=== PATIENT | male | born 1945 | race Caucasian/White ===

== ENCOUNTER 2017-09-15 07:31 | Emergency (ER) | payer MEDICARE, BC ==
[~2017-09-15] VITALS: Ht 182.9 cm; Wt 81.0 kg
[~2017-09-15 07:31] MED LIST: CHLO0.129 SWISH-SPIT
[2017-09-15 07:37] VITALS: BP 133/67; PULSE 76; RESP 16; TEMP 97.6; O2SAT 97
[2017-09-15] MEDS ORDERED: ALEV220T14 PO (07:46)
--- NOTE | 2017-09-15 08:01 | PD ---
HPI Chief Complaint: Back/ Neck Pain or Injury Time Seen by Provider: 07:58 Travel History International Travel<30 days: No Contact w/Intl Traveler<30days: No Traveled to known affect area: No History of Present Illness HPI Patient presents with complaints of acute lower back pain. States he was playing tennis on and after the second match he had acute onset of lumbar back pain. Denies any trauma misstep or fall. He was diagnosed with prostate cancer 1 month ago. Denies any lower extremity weakness. Aggravated with movement. PFSH Past Medical History Cancer: Yes (prostate) Diminished Hearing: No Radiation Therapy: Yes (last done 09/13/2017) Influenza Vaccination: No ?: Not Past Surgical History Surgical History: No Previous Surgery Social History Alcohol Use: Yes (3 BEERS DAILY) Tobacco Use: No Allergies-Medications (Allergen,Severity, Reaction): Coded Allergies: No Known Allergies (Unverified Adverse Reaction, Unknown, 09/15/17) Reported Meds & Prescriptions Reported Meds & Active Scripts Active Reported Aleve Arthritis (Naproxen Sodium) 220 Mg Tab 220 Mg PO BID Review of Systems General / Constitutional: No: Fever Eyes: No: Visual changes HENT: No: Headaches Cardiovascular: No: Chest Pain or Discomfort Respiratory: No: Shortness of Breath Gastrointestinal: No: Abdominal Pain Genitourinary: No: Dysuria Musculoskeletal: No: Pain Skin: No Rash Neurologic: No: Weakness Psychiatric: No: Depression Endocrine: No: Polydipsia Hematologic/Lymphatic: No: Easy Bruising Physical Exam Narrative GENERAL: Well-nourished, well-developed patient. SKIN: Focused skin assessment warm/dry. HEAD: Normocephalic. EYES: No scleral icterus. No injection or drainage. NECK: Supple, trachea midline. No JVD or lymphadenopathy. CARDIOVASCULAR: Regular rate and rhythm without murmurs, gallops, or rubs. RESPIRATORY: Breath sounds equal bilaterally. No accessory muscle use. GASTROINTESTINAL: Abdomen soft, non-tender, nondistended. MUSCULOSKELETAL: No cyanosis, or edema. BACK: Nontender without obvious deformity. No CVA tenderness. Examination lumbar sacral spine really doesn't elicit any tenderness in midline or paraspinous regions Data Data Last Documented VS Vital Signs Date Time Temp Pulse Resp B/P (MAP) Pulse Ox O2 Delivery O2 Flow Rate FiO2 2/25/18 07:37 97.6 76 16 133/67 (89) 97 Room Air Orders Orders Spine, Lumbar - Ltd (Ap & Lat) (09/15/17 ) MDM Medical Decision Making Medical Screen Exam Complete: Yes Emergency Medical Condition: Yes Differential Diagnosis Lumbar sacral muscle discomfort pain, lumbar degenerative disc disease, lumbar fracture, metastases from prostate cancer Narrative Course Assessment and plan discussed with patient at bedside. Degenerative change with disc space narrowing at the L4-L5 level and marginal osteophytes throughout. Diagnosis Primary Impression: Lumbago Qualified Codes: M54.5 - Low back pain Patient Instructions: General Instructions Additional Instructions: Encourage nonsteroidal anti-inflammatories warm heat gentle stretching and strengthening and massage. Pain medication and muscle relaxer as needed. Follow-up with PCP. Return to the ER with any onset of new symptoms. Med/Other Pt SpecificInfo: Prescription(s) given Scripts Cyclobenzaprine (Flexeril) 10 Mg Tab 10 MG PO TID for Muscle Spasm, #15 TAB 0 Refills Prov: Nathen Santiago MD 09/15/17 Hydrocodone-Acetaminophen (Hydrocodone-Acetaminophen) 5-325 mg Tab 1 TAB PO Q4H Y for PAIN for 5 Days, #15 TAB 0 Refills Prov: Nathen Santiago MD 09/15/17 Disposition: 01 DISCHARGE HOME Condition: Good Nathen Santiago MD Sep 15, 2017 08:01
--- NOTE | 2017-09-15 08:50 | RADRPT ---
EXAM DATE/TIME: 09/15/2017 08:20 [facility] COMPARISON: No previous studies available for comparison. INDICATIONS : Lower back pain. Twisting motion while playing tennis. MEDICAL HISTORY : None. SURGICAL HISTORY : None. ENCOUNTER: Initial ACUITY: 2 days PAIN SCORE: 10/10 LOCATION: Bilateral Lower back. FINDINGS: Two view examination was performed. There are five non-rib bearing vertebral bodies. The vertebral bodies are in normal alignment without evidence of subluxation or scoliosis. There is disc space marianne rowing at the L4-L5 hole. Marginal osteophytes are seen throughout. The pedicles are intact. Bony mi neralization is normal. No fracture is identified. Vascular calcifications are seen. CONCLUSION: Degenerative change with disc space narrowing at the L4-L5 level and marginal osteophytes throughout. Luis Eduardo Hooker MD on September 15, 2017 at 8:47 Board Certified Radiologist. This report was verified electronically.
[2017-09-15] MEDS ORDERED: HYDR-3516 PO (08:59)
[2017-09-15] MEDS ORDERED: CYCL10TA PO (08:59)
== END 2017-09-15 09:08 | disposition home or self-care (01) ==
LOC: PHED 07:31
DX: M51.36 Other intervertebral disc degeneration, lumbar region (principal); C61 Malignant neoplasm of prostate
CPT/HCPCS: 72100; 99283